=== PATIENT | female | born 1985 | race Caucasian/White ===

== ENCOUNTER 2016-07-30 22:09 | Emergency (ER) | payer OTHER ==
[~2016-07-30 22:09] MED LIST: CLEOCIN HCL300 MG PO; IPRAT-ALBUT 0.5-3 ML IH; LACTINEX CHEWA1 EACH PO; LASIX40 MG PO; LEVAQUIN750 MG PO; NICOTINE TRANSD21 MG TOP; NYSTATIN1 EAC1 TOP; PERCOCET 7.5-31 EACH PO; PREDNISONE10 MG PO; SYNTHROID125 MCG PO; SYNTHROID150 MCG PO; TESSALON PERLE100 MG PO; TYLENOL325 MG PO; VENTOLIN HFA8 GM INH; ZANTAC300 MG PO; ZYRTEC10 MG PO
== END 2016-07-31 03:00 | disposition home or self-care (01) ==
LOC: ER 22:09
DX: M54.2 Cervicalgia (principal); R22.1 Localized swelling, mass and lump, neck; Z87.891 Personal history of nicotine dependence; Z79.899 Other long term (current) drug therapy; Z88.0 Allergy status to penicillin; Z88.2 Allergy status to sulfonamides; Z88.5 Allergy status to narcotic agent; Z88.8 Allergy status to other drugs, medicaments and biological substances